=== PATIENT | male | born 1980 | race Two or more races ===

== ENCOUNTER 2016-09-07 09:52 | Emergency (ER) | payer BC, SELFPAY ==
[~2016-09-07 09:52] MED LIST: CALCIUM; CYCLOBENZAPRINE10 M1 PO; LORTAB 5-500 T1 EAC1 PO; MULTIVITAMIN1 CAP; NAPROSYN500 M1 PO; NORCO 5/325 TAB1 TAB PO; VITAMIN B 12
[2016-09-07] MEDS ORDERED: [UNRECOGNIZED DRUG - REMARK] (10:00)
[2016-09-07] MEDS ORDERED: NORCO 5-325 TA1 EACH PO (11:13)
== END 2016-09-07 11:44 ==
LOC: EDMED 09:52
DX: S82.831A Other fracture of upper and lower end of right fibula, initial encounter for closed fracture (principal); Z98.890 Other specified postprocedural states; X50.1XXA Overexertion from prolonged static or awkward postures, initial encounter; Y93.H2 Activity, gardening and landscaping; Y92.017 Garden or yard in single-family (private) house as the place of occurrence of the external cause; Y99.8 Other external cause status